=== PATIENT | female | born 1960 | race Caucasian/White ===

== ENCOUNTER 2017-04-22 06:18 | Day surgery (SDC) | payer MEDICAID ==
[~2017-04-22] VITALS: Ht 157.5 cm; Wt 62.6 kg
[2017-04-22] MEDS ORDERED: LIDOCAINE 2% 100 MG/5 ML UJET TP ONE (07:51)
== END 2017-04-22 08:55 | disposition home or self-care (01) ==
LOC: MDS 06:18 → MMU 06:27 → MDS 08:55
PROVIDERS: ATTEND Internal Medicine Gastroenterology
DX: K56.41 Fecal impaction (principal); Z79.899 Other long term (current) drug therapy; Z98.890 Other specified postprocedural states